=== PATIENT | male | born 1980 | race Caucasian/White ===

== ENCOUNTER 2020-09-18 12:51 | Outpatient (CLI) | payer MEDICAID, SELFPAY ==
--- NOTE | 2020-09-18 11:15 | DI.RAD_ITS ---
Exam(s) XR FINGER RT INDEX EXAM: XR FINGER RT INDEX CLINICAL HISTORY: right index finger cyst. TECHNIQUE: 2D digital imaging was performed. COMPARISON: No exams were available for comparison FINDINGS: Three dedicated views of the right 2nd-index finger reveal no evidence of fracture or dislocation. N o radiopaque foreign body. No osseous lesions nor erosions evident. Bone density appears normal. N o soft tissue calcifications. IMPRESSION: No significant radiographic findings in the 2nd-index finger of the right hand. DATA REPOSITORY: RADIATION DOSE DELIVERED:
== END 2020-09-18 12:52 | disposition home or self-care (01) ==
LOC: DIORS 12:51
PROVIDERS: Visit Provider Physician Assistant
DX: M67.441 Ganglion, right hand (principal)
CPT/HCPCS: 73140

== ENCOUNTER 2020-09-20 06:11 | Day surgery (SDC) | payer MEDICAID, SELFPAY ==
[2020-09-20 06:20] VITALS: BP 112/70; PULSE 63; RESP 14; TEMP 36.6; O2SAT 98
--- NOTE | 2020-09-20 07:23 | W.PM.DSUDISC ---
Discharge Plan Disposition Patient Disposition: HOME Condition: Good Discharge Details Reason For Visit: RIF IMCLUSION CYST Attending Provider: Hakan Hansen Primary Care Provider: None,None Home Meds and New Rx's Prescriptions: New acetaminophen 500 mg tablet 500 mg PO Q6H PRN PRN (Reason: pain) Qty: 40 RF: 3 hydrocodone-acetaminophen 5-325 mg tablet 1 tab PO Q6H PRN (Reason: pain) Qty: 4 RF: 0 ibuprofen 600 mg tablet 600 mg PO TID PRN (Reason: pain) Qty: 30 RF: 3 Discharge Instructions Stand Alone Forms: Tyrone Du Finger Release Referrals: Hakan Hansen MD [ [facility] STAFF PHYSICIAN] - Activity:: Elevate Remove Dressings/Wound Care:: 48 hours Shower/Bathe:: 48 hours Discharge Orders Discharge Orders: Discharge Order (Routine); Ordered 09/20/20 Ordered By: Hakan Hansen DS: Diagnosis Discharge Diagnosis (1) Epidermoid cyst of finger of right hand: Status: Acute
[2020-09-20] MEDS: Sodium Bicarbonate 50 MEQ/50 ML VIAL (07:40)
[2020-09-20 07:53] VITALS: BP 111/75; PULSE 65; RESP 16; TEMP 36.6; O2SAT 100
--- NOTE | 2020-09-20 08:06 | W.PM.OP ---
Date of service: 09/20/20 Time of Service: 07:47 Operative Note Operative Note DATE OF PROCEDURE: 09/20/20 PRE-OP DIAGNOSIS: Right Index Finger Inclusion Cyst POST-OP DIAGNOSIS: same PROCEDURE: Inclusion Cyst Excision - Right Index Finger SURGEON: Hakan Hansen ANESTHESIA TYPE: Local By Surgeon Refer to Anesthesia Record ESTIMATED BLOOD LOSS: 0 PATHOLOGY: none sent COMPLICATIONS: None Patient was transported to: same day Patient's condition: stable Indications: I have seen Zeb in clinic for symptoms of a digital inclusion cyst. The mass persisted and caused pain to direct contact and with use. The diagnosis of a suspected inclusion cyst was made given its mobile and superficial location. The symptoms had not responded to conservative measures. I discussed cyst excision with the patient. I reviewed the risks of the procedure to include, but not limited to, bleeding, infection, pain, stiffness, damage to nerves or vessels, continued catching, recurrence. Despite these risks, the patient elected to proceed. Findings: There was an inclusion cyst of the palmar aspect of the right index finger at the PIP flexion crease. The cyst and its capsule was removed with the typical shiny, inert capsule and caseous contents confirming the diagnosis. Procedure Description: Zeb was greeted in the preoperative holding area where the correct side was identified and marked. The consent was reviewed with the patient and signed. All questions were answered. He was taken back to the operating room. The patient was placed into the supine position on the operating room table with the right arm on an arm board. All bony prominences were well padded. No prophylactic antibiotics were administered since this was a clean, elective hand surgical case. The right arm was then prepped with Chloraprep and draped in a standard fashion with stockinette and extremity drape. A timeout to confirm correct identity, side and site, procedure, allergies, anesthesia, and medical concerns was performed. A digital block was then performed using 1% lidocaine with epinephrine and buffered with sodium bicarbonate. This was allowed time to set up completely and was tested before proceeding with the case. A longitudinal incision was then made overlying the cyst. The skin was incised sharply. Full-thickness flaps were then elevated to expose the cyst. The cyst was then removed in whole, easily dissecting away from surrounding tissues. The cyst capsule was opened and white, caseous material was evacuated confirming the diagnosis of an inclusion cyst. The finger was irrigated and once again checked to make sure that all components of the cyst were removed. The skin was then closed using a #4-0 nylon in interrupted fashion. The finger was dressed with Xeroform, 4 x 4, and TubeGauze dressing. The patient tolerated the procedure well and was returned to the Same Day Surgery area in a stable condition suffering no known complication.
== END 2020-09-20 08:15 | disposition home or self-care (01) ==
PROVIDERS: Visit Provider Student in an Organized Health Care Education/Training Program
PROC: (CPT 26160; principal; 2020-09-20 07:30)
DX: L72.0 Epidermal cyst (principal)
CPT/HCPCS: 26115

== ENCOUNTER 2022-12-30 10:10 | Emergency (ER) | payer OTHER, SELFPAY ==
[2022-12-30 10:13] VITALS: BP 124/86; PULSE 68; RESP 15; TEMP 36.8; O2SAT 98
== END 2022-12-30 11:16 | disposition left against medical advice (07) ==
LOC: ER 11:13
DX: Z53.21 Procedure and treatment not carried out due to patient leaving prior to being seen by health care provider (principal)